=== PATIENT | female | born 1950 ===

== ENCOUNTER 2021-02-10 08:35 | Outpatient (CLI) | payer OTHER | END 2021-02-10 09:00 | disposition home or self-care (01) | LOC: PPH VACUNA 08:35 | PROVIDERS: ATTEND Emergency Medicine Pediatric Emergency Medicine | DX: Z23 Encounter for immunization (principal) ==

== ENCOUNTER 2022-01-12 09:04 | Outpatient (CLI) | payer OTHER | END 2022-01-12 09:20 | disposition home or self-care (01) | LOC: PPH VACUNA 09:04 | PROVIDERS: ATTEND Emergency Medicine Pediatric Emergency Medicine | DX: Z23 Encounter for immunization (principal) ==

== ENCOUNTER 2022-03-30 10:21 | Outpatient (CLI) | payer OTHER | END 2022-03-30 10:31 | disposition home or self-care (01) | LOC: PPH VACUNA 10:21 | PROVIDERS: ATTEND Emergency Medicine Pediatric Emergency Medicine | DX: Z23 Encounter for immunization (principal) ==